=== PATIENT | female | born 1935 | race Caucasian/White ===

== ENCOUNTER 2025-01-11 08:05 | Inpatient (IN) | payer MEDICARE, MEDICAID ==
[~2025-01-11] VITALS: Ht 165.1 cm; Wt 72.7 kg
--- NOTE | 2025-01-11 08:31 | Physician Documentation ---
History of Present Illness Chief Complaint: Vomiting Stated Complaint: WEAKNESS Time Seen by MD: 08:14 HPI 89 years old female with history of coronary artery disease status post CABG 5 years ago, and pacemaker defibrillator in place brought by EMS due to generalized weakness, diarrhea. Patient reported diarrhea started about two days ago and it was loose watery and about 10 to 12 times a day not related to eating. Also reported generalized weakness and light-headedness, denied any fall or loss of consciousness, was able to take the medication today Patient reported also nausea vomiting couple of times which was bile content, abdominal pain started after vomiting which is in epigastric area and it is about 5/10. Denied any chest pain or shortness of breaths, coughing or palpitation. 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 Medication Reconciliation Allergies: Coded Allergies: No Known Allergies (Unverified , 01/11/25) Past Medical History Past Medical History: Arrhythmia, Coronary Artery Disease (Status post CABG five years ago) Smoking Status: Former smoker Alcohol Use: None Drug Use: none Lives with: Family Review of Systems ROS The history of present illness included a review of system, which yielded relevant positives and negatives Physical Exam Vital Signs: Temperature: 98.7, Source: Oral, Heart Rate: 120, Respiratory Rate: 16, BP: 108/68, Pulse Oximetry: 92, Weight: 72.700 Oxygen Flow Rate: 0 Physical Exam General: Awake and Alert, no acute distress. HEENT: Conjunctiva pink, Sclera clear, Mucus Membranes dry Neck: Supple without masses and tenderness. Resp: Lungs clear to auscultation bilaterally. Heart: Regular Rate and rhythm, tachycardic normal S1 and S2 Abdomen: Soft and non tender no organomegaly Extremities: No cyanosis,clubbing or edema. Skin: Warm and Dry. Neurological: Speech is clear, alert, and oriented x 4, no gross neurological deficits Progress Results/Orders Results/Orders Orders - LENNOX VEE RES Chest,Single View (01/11/25 08:16) Monitor (01/11/25 08:16) Saline Lock (01/11/25 08:16) Oxygen (01/11/25 08:16) Cbc/Diff (01/11/25 08:16) BMP (01/11/25 08:16) PBNP (01/11/25 08:16) Electrocardiogram (01/11/25 08:16) Hs Troponin I W Calculations (01/11/25 08:16) Hs Troponin I W Calculations (01/11/25 10:16) Hs Troponin I W Calculations (01/11/25 11:16) Vital Signs 01/11/25 08:07 Temp 98.7 Pulse 120 Resp 16 B/P (MAP) 108/68 Pulse Ox 92 O2 Flow Rate 0 EKG/XRAY/CT/US/VASC/MRI EKG : Additional Comment EKG: Sinus tachycardia rate 119, right axis deviation, no ST changes, QTC 472 Chest X-Ray : Additional Comments CHEST RADIOGRAPH Indication: CP Technique: Single frontal view of the chest was obtained COMPARISON: None FINDINGS: Lines and Tubes: Right chest AICD. Pacemaker leads overlie the left chest. Lungs: Mild pulmonary vascular congestion. Pleura: No effusion. No pneumothorax. Cardiomediastinal contours: Median sternotomy. Cardiomegaly. Vascular calcifications of the aorta. Bones: Unremarkable IMPRESSION: Mild pulmonary vascular congestion. Medical Decision Making Additional information obtaine: N/A Findings 89 years old female presented with generalized weakness, diarrhea and light-headedness, abdominal pain over last month, she reported 10 12 times watery diarrhea, no chest pain or shortness of breaths. Blood pressure is soft and patient has sinus tachycardia Differential diagnosis included not but not limited to a infectious gastroenteri tis, ischemic colitis, diverticulitis, pancreatitis, hydration Patient received 1 L fluid and p.o. metoprolol tartrate 25 mg, needs hospitalization for further monitoring due to JIE and dehydration Differential Dx:Considerations: Bowel obstruction, Diverticular disease, Gastritis/PUD, Ischemic bowel Departure Disposition: ADMITTED INPATIENT Admitted to Inpatient Unit: yes, to hospitalist Impression: Primary Impression: JIE (acute kidney injury) Additional Impressions: Diarrhea Acute exacerbation of congestive heart failure Condition: Guarded Referrals: NO PRIMARY CARE PROVIDER (PCP) Additional Comment Seen with PA/SHAPER OPERATOR This is an attending supervisory note for the resident of record. I have personally participated in care of this patient, has been present during critical and/or dee portions of the patient's service, participated in the evaluation, and provided major portion of medical decision-making, independently interpreted imaging and laboratory studies and participated in disposition of this patient. Date: Jan 11, 2025 Time: 12:23 in brief, this is a 89-year-old female who presented for evaluation of multiple episodes of diarrhea and episode of vomiting. The vomiting was followed by mild epigastric pain. The particular palliating or aggravating factors. Differential diagnosis considered includes acute appendicitis, acute cholecystitis, pancreatitis, gastritis, PUD, diverticulitis, mesenteric ischemia, abdominal aortic aneurysm, bowel obstruction, enteritis, colitis, fecal impaction, volvulus, IBS, inflammatory bowel disease, specific food intolerance, peritonitis, perforated viscous, malignancy, UTI, abscess, and abdominal pain NOS. Pelvic source of pain was also considered including endometritis, dysmenorrhea, ovarian cyst, ovarian torsion, PID, TOA, cervicitis, vaginitis, or uterine fibroid. History, physical exam, and workup exclude many of the more serious causes listed above. Hemodynamics reviewed. The patient is persistently tachycardic despite of fluid resuscitation. No evidence of true hypotension but blood pressure is very self despite of fluid resuscitation. Laboratory studies are unremarkable, there was no leukocytosis, no anemia, normal platelets. Chemistry notable for slight IJE. Troponins are negative and downtrending. BNP is elevated concerning for mild CHF. No prior values available. Chest x-ray was obtained showing mild pulmonary vascular congestion. Patient will require admission to Internal Medicine service for further evaluation and management of their disease process. The case was discussed by the resident of record with the admitting service and they were made aware of all the patient's active issues, including the above-mentioned history, physical exam findings, and the diagnostic results, as well as our concerns and s uspicions, as well as any possible incidental findings and pending test. They agreed with the admission plan to their service, and agreed to assume responsibility for the patient's ongoing care and management at that point in time. Patient was admitted in [] condition. Signature Scribe Signature: Lennox Vee Attestation: The resident MD attestation: I examined the patient and discussed the plan with attending physician Dr Kay Date: Jan 11, 2025 Time: 12:26 This note accurately reflects clinical decisions, work performed by myself, DO BARRETT Vieira ELAHE, RES Jan 11, 2025 08:31 MACK PRETTY DO Jan 11, 2025 12:26
[2025-01-11] MEDS ORDERED: dextrose 5% water 500ml 500 ML IV ONE (08:35)
[2025-01-11 08:38] LABS: MEAN PLATELET VOLUME 7.3 FL (7.4-10.4); RED CELL DISTRIBUTION WIDTH 13.6 % (11.5-14.5)
--- NOTE | 2025-01-11 08:48 | RADIOLOGY REPORT ---
CHEST RADIOGRAPH Indication: CP Technique: Single frontal view of the chest was obtained COMPARISON: None FINDINGS: Lines and Tubes: Right chest AICD. Pacemaker leads overlie the left chest. Lungs: Mild pulmonary vascular congestion. Pleura: No effusion. No pneumothorax. Cardiomediastinal contours: Median sternotomy. Cardiomegaly. Vascular calcifications of the aorta. Bones: Unremarkable IMPRESSION: Mild pulmonary vascular congestion.
--- NOTE | 2025-01-11 08:50 | ELECTROCARDIOGRAPH REPORT ---
[facility] Test Date: 2025-01-11 Test Time: 08:47:34 Pat Name: AMADOR MAYNARD Department: [facility] Patient ID: [id number] Room: [place] [address] Gender: F Demolition Specialist: : [id number] Requested By: LENNOX HYDE Order Number: [id number] Reading MD: Dr. Carmelo Roberts Measurements Intervals [place] Rate: 119 P: 81 HI: 175 QRS: -17 QRSD: 125 T: 217 QT: 335 QTc: 472 Interpretive Statements Sinus tachycardia Nonspecific intraventricular conduction delay Inferior infarct, recent Abnrm T, consider ischemia, anterolateral lds Baseline wander in lead(s) V2 Electronically Signed On 01-11-2025 20:42:[address] Carmelo Roberts Please click the below link to view image of tracing.
[2025-01-11 08:58] LABS: CREATININE 1.40 MG/DL (0.40-0.90); PRO BRAIN NATRIURETIC PEPTIDE 1495 PG/ML (0-450); TOTAL CARBON DIOXIDE 26.6 MMOL/L (24-32); eCRCL 25 ML/MIN; eGFR 35 ML/MIN
[2025-01-11] MEDS: normal saline 1000ml 1,000 ML IVB ONE (09:14)
[2025-01-11] MEDS: ondansetron/PF 4mg/2ml inj IV ONE (09:58)
[2025-01-11] MEDS: normal saline 500ml IV soln 500 ML IV ONE (12:25)
[2025-01-11] MEDS ORDERED: magnesium Cl slow-release 64mg tablet PO PRN (12:45)
[2025-01-11] MEDS ORDERED: potassium Cl 40MEQ/1/2NS 520ml 520 ML IV PRN (12:45)
[2025-01-11] MEDS ORDERED: ondansetron/PF 4mg/2ml inj IV PRN (12:45)
[2025-01-11] MEDS ORDERED: potassium Cl 20 mEq SR tablet PO PRN ×2 (12:45)
[2025-01-11] MEDS ORDERED: magnesium sulf-water 2g/50mL 50 ML IV PRN (12:45)
[2025-01-11] MEDS ORDERED: magnesium hydroxide 30ml (MOM) UD suspension PO PRN (12:45)
[2025-01-11] MEDS ORDERED: bisacodyl 10mg suppository rectal RC PRN (12:45)
[2025-01-11] MEDS ORDERED: magnesium sulf-water 4G/100mL 100 ML IV PRN (12:45)
[2025-01-11 13:42] LABS: C DIFF ANTIGEN POSITIVE (NEGATIVE); C DIFF SPECIMEN=DIARRHEA? ACCEPTABLE; C DIFFICILE TOXINS A&B POSITIVE (Neg)
[2025-01-11 13:43] LABS: OCCULT BLOOD STOOL NEGATIVE (Neg)
[2025-01-11] MEDS: vancomycin 125 MG/5 ML UD oral SOLN.RECON 5mL oral syringe (FIRVANQ) PO SCH (14:21)
[2025-01-11] MEDS: normal saline 1000ml 1,000 ML IV SCH (14:26)
[2025-01-11 16:11] VITALS: BP 106/69; PULSE 116; RESP 16; TEMP 96.9; O2SAT 97
[2025-01-11] MEDS ORDERED: MULT400T5 PO (17:15)
[2025-01-11] MEDS ORDERED: MECO10005 PO (17:16)
[2025-01-11] MEDS ORDERED: SACU1TAB PO (17:17)
[2025-01-11] MEDS ORDERED: METO-395 PO (17:19)
--- NOTE | 2025-01-11 17:19 | CARDIOLOGY REPORT ---
APPROVED REPORT EXAM: Comprehensive 2D, Doppler, and color-flow Echocardiogram. Patient Location: ER 3 Blood Pressure: 103/62 mmHg Heart Rate: 114 bpm Rhythm: SINUS TACHYCARDIA Indications CORONARY ARTERY DISEASE CAD, CABG X4 2019 MITRAL VALVE REPLACEMENT OF UNKNOWN SIZE AND TYPE 2019 PACEMAKER CARDIOMEMS Warhead Maintenance Specialist: Annamaria Cruz MD Previous echo: 10/29/23 CVC SCN (EF 25%, MVR well seated, mild AI, mild TR) 2D Dimensions RVDd 3.9 cm LVOT Diameter 2.02 (1.8-2.4cm) Ao Asc Diam. 3.33 cm CO 2.2 L/min M-Mode Dimensions Left Atrium(MM) 3.62 (2.5-4.0cm) IVSd 1.30 (0.7-1.1cm) LVDd 3.78 (4.0-5.6cm) Aortic Root 2.50 (2.2-3.7cm) PWd 1.18 (0.7-1.1cm) Aortic Cusp Exc 1.22 (1.5-2.0cm) IVSs 1.57 cm LVDs 2.83 (2.0-3.8cm) FS (%) 14 % PWs 1.60 cm ESV(Teich) 42.1 ml LVEF(%) 31 (>50%) Aortic Valve AoV Peak Ever. 119.7 cm/s AoV VTI 15.8 cm AO Peak GR. 5.7 mmHg AO Mean GR. 3 mmHg LVOT VTI 12.64 cm LVOT Peak Ever. 89.9 cm/s LOBO(VTI)/BSA 2.57 cm2/m2 LOBO (VTI) 2.57 cm2 AV DI 0.80 % Mitral Valve MV Peak Gr. 18 mmHg MV Mean Gr. 8 mmHg MV PHT 60 ms MVA (PHT) 3.67 cm2 MV VMax 214.1 cm/s MV VMean 137.6 cm/s MVA VTI 1.27 cm2 MV VTI 31.9 cm Tricuspid Valve TR P. Velocity 239 cm/s RAP ESTIMATE 10 mmHg TR Peak Gr. 23 mmHg RVSP 33 mmHg LEFT VENTRICLE Reduced LV size and severely reduced function. Mild concentric hypertrophy. LVEF is 30%. RIGHT VENTRICLE RV is moderately dilated with mildly reduced systolic function. RVSP is estimated at 33 mmHg. Pacemaker wire in right heart. ATRIA LA size appears normal. RA appears mildly dilated. AORTIC VALVE Trileaflet AV appears mildly sclerotic without stenosis. Mild insufficiency. MITRAL VALVE Mitral valve replacement of unknown size and type appears tipped toward the LV septum. Peak / mean gradients of 18 / 8 mmHg. No PVL or regurgitation visualized. TRICUSPID VALVE TV appears structurally normal with moderate regurgitation. PULMONIC VALVE Normal PV without stenosis, physiologic insufficiency. GREAT VESSELS Aortic root is normal in size. Ascending aorta is normal in size. PERICARDIUM Normal pericardium. No effusion. Conclusion Reduced LV size and severely reduced function. Mild concentric hypertrophy. LVEF is 30%. RV is moderately dilated with mildly reduced systolic function. RVSP is estimated at 33 mmHg. Pacemaker wire in right heart. LA size appears normal. RA appears mildly dilated. Trileaflet AV appears mildly sclerotic without stenosis. Mild insufficiency. Mitral valve replacement of unknown size and type appears tipped toward the LV septum. Peak / mean gradients of 18 / 8 mmHg. No PVL or regurgitation visualized. TV appears structurally normal with moderate regurgitation. Normal pericardium. No effusion.
[2025-01-11] MEDS ORDERED: EMPA10TA PO (17:21)
[2025-01-11] MEDS ORDERED: RIVA15TA PO (17:21)
[2025-01-11 18:00] VITALS: BP 105/69; PULSE 112; RESP 19; TEMP 98.9; O2SAT 96
[2025-01-11 20:00] VITALS: RESP 18; O2SAT 98
[2025-01-11] MEDS: K and/or MAG REPLACEMENT MC SCH (20:00)
[2025-01-11] MEDS: heparin, porcine 5000 units/ml vial SQ SCH (20:16)
--- NOTE | 2025-01-11 20:22 | HISTORY AND PHYSICAL ---
History & Physical Providers to CC ~ History of Present Illness Reason for Admit\Complaint: Generalized weakness diarrhea since one day History of Present Illness 89 years old female with history of coronary artery disease status post CABG 5 years ago, and pacemaker defibrillator in place brought by EMS due to generalized weakness, diarrhea.Patient reported diarrhea started about 1-2 days ago and it was loose watery and about 10 to 12 times a day not related to eating. Also reported generalized weakness and light-headedness, denied any fall or loss of consciousness. She took some of her medication today . Patient denied any nausea vomiting but having dry heaves and phlegm. No fever. Denied any abdominal pain to me . No recent med change. Feels generalized weakness. Passing yellow watery loose stools which I examined. Patient is taking cardiac meds, metoprolol Entresto Jardiance Xeralto and follows with Dr. Salazar in outpatient setting on regular basis. He goes to [facility]. Allergies: Coded Allergies: No Known Allergies (Unverified , 01/11/25) Home Medications Home Medications Active Reported Jardiance (Empagliflozin) 10 Mg Tablet 1 Tab PO DAILY 30 Days Xarelto (Rivaroxaban) 15 Mg Tab 1 Tab PO DAILY 30 Days Metoprolol Succinate 25 Mg Tab.sr.24h 1 Tab PO DAILY 30 Days Entresto 24 mg-26 mg Tablet (Sacubitril/Valsartan) 24 Mg-26 Mg Tablet 1 Tab PO Q12H 30 Days B12 Active (Mecobalamin) 1,000 Mcg Tab.chew 1 Tab PO DAILY 30 Days One Daily Multivitamin Tablet (Multivitamin with Folic Acid) 400 Mcg Tablet 1 Tab PO DAILY 30 Days Past Medical History Past Medical History Arrhythmia, Coronary Artery Disease (Status post CABG five years ago) Past Surgical History Surgical History Comment Status post CABG five years ago Past Social History Social History Comment Patient's [id number] lives with her who is her caregiver too. Patient is able to walk with walker usually. No use of any alcohol tobacco or any recreational drug ROS ROS Review of system as mentioned above in HPI rest of the review of system unremarkable Exam Vitals: Vital Signs Date Time Temp Pulse Resp B/P (MAP) Pulse Ox O2 Delivery O2 Flow Rate FiO2 01/11/25 16:11 96.9 116 16 106/69 (81) 97 Room Air 01/11/25 15:15 0 General: General-patient not in any acute distress, alert awake oriented, chronically ill-appearing, age-appropriate HEENT-atraumatic normocephalic, neck supple without elevated JVD, no thyromegaly or carotid bruit. No lymphadenopathy bilaterally. Eyes-no icterus or pallor seen in eyes Chest-clear to auscultation bilaterally, breathing nonlabored no tachypnea, no wheezing, no crepitation, no crackles. Heart-S1-S2 normal, regular heart rate no murmur Abdomen bowel sounds positive on auscultation, soft nondistended , signs of discomfort present over lower abdomen no guarding, no rigidity Skin no active skin rash Neurology-grossly intact, nonfocal alert awake oriented Extremity- no pedal edema able to move all 4 extremities Psychiatry - patient is not confused or agitated cooperated during physical examination Diagnostic Data Last Recorded Lab Results: 01/11/2582701/11/25827 Additional Plan 89 years old female with history of coronary artery disease status post CABG 5 years ago, and pacemaker defibrillator in place brought by EMS due to generalized weakness, diarrhea. Patient is admitted for generalized weakness C diff colitis, acute kidney injury, borderline blood pressure and tachycardia # C diff colitis-patient is started on p.o. vancomycin and IV fluids. Contact isolation ordered # Borderline blood pressure we will hold cardiac medications today. # acute kidney injury- started on IV fluids we will continue to monitor renal function # CAD, status post CABG 5 years ago, and pacemaker defibrillator Patient is on metoprolol Entresto Martinez Xeralto at home and follows with Dr. Cruz in outpatient setting on regular basis. We will continue to monitor patient's labs and vitals closely . Needs physical therapy evaluation before discharge . Code status discussed with the patient patient wishes DNR DNI. Time spent in discussing code status 16 minutes. We will do home medication reconciliation once updated in electronic by nursing staff or pharmacist. Further management depending on response to treatment . I will continue to follow patient in a.m. Date of Service: Jan 11, 2025 Billing Provider: LOREN PINON MD Common Visit Codes: [id number] INP/OBS CARE (HIGH) Secondary Visit Codes: 37979-PIPWOBEN CARE PLAN 30 MINUTES LOREN PINON MD Jan 11, 2025 20:22
[2025-01-11 22:00] VITALS: BP 92/60; PULSE 116; RESP 16; TEMP 97.5; O2SAT 98
[2025-01-12 03:55] LABS: MEAN PLATELET VOLUME 7.6 FL (7.4-10.4); RED CELL DISTRIBUTION WIDTH 13.0 % (11.5-14.5)
[2025-01-12 04:08] LABS: CREATININE 1.13 MG/DL (0.40-0.90); TOTAL CARBON DIOXIDE 24.9 MMOL/L (24-32); eCRCL 30 ML/MIN; eGFR 45 ML/MIN
[2025-01-12] MEDS: rivaroxaban 15mg tablet PO SCH (08:10)
[2025-01-12] MEDS: metoprolol succinate 25mg (24-HOUR) SR. Tablet PO SCH (08:10)
[2025-01-12 10:09] VITALS: BP 88/49; PULSE 117; RESP 14; TEMP 97.5; O2SAT 96
[2025-01-12 11:52] VITALS: BP 98/60
[2025-01-12 18:00] VITALS: BP 114/60; PULSE 115; RESP 16; TEMP 97.1; O2SAT 98
[2025-01-12 20:00] VITALS: RESP 18; O2SAT 98
--- NOTE | 2025-01-12 20:38 | PROGRESS NOTE ---
Daily Progress Note Providers to CC ~ Antibiotic Timeout Antibiotic Ordered?: Yes Subjective Patient was seen in presence of her iczkuuxe-fn-oen and nursing staff today. Clinically feeling better. She has not passed stools since last night. Improving renal function Objective Vital Signs Date Time Temp Pulse Resp B/P (MAP) Pulse Ox O2 Delivery O2 Flow Rate FiO2 01/12/25 18:30 86 01/12/25 11:52 98/60 (73) 01/12/25 10:09 97.5 14 96 Room Air 01/12/25 09:40 0.0 Result Diagram: 01/12/25 0326 01/12/25 0326 General-patient not in any acute distress, alert awake oriented, chronically ill-appearing, age-appropriate HEENT-atraumatic normocephalic, neck supple without elevated JVD, no thyromegaly or carotid bruit. No lymphadenopathy bilaterally. Eyes-no icterus or pallor seen in eyes Chest-clear to auscultation bilaterally, breathing nonlabored no tachypnea, no wheezing, no crepitation, no crackles. Heart-S1-S2 normal, regular heart rate no murmur Abdomen bowel sounds positive on auscultation, soft nondistended , signs of discomfort present over lower abdomen no guarding, no rigidity Skin no active skin rash Neurology-grossly intact, nonfocal alert awake oriented Extremity- no pedal edema able to move all 4 extremities Psychiatry - patient is not confused or agitated cooperated during physical examination Problem\Assessment\Plan 89 years old female with history of coronary artery disease status post CABG 5 years ago, and pacemaker defibrillator in place brought by EMS due to generalized weakness, diarrhea. Patient is admitted for generalized weakness C diff colitis, acute kidney injury, borderline blood pressure and tachycardia # C diff colitis-patient is started on p.o. vancomycin and IV fluids. Contact isolation ordered # Borderline blood pressure we will hold cardiac medications for now. # acute kidney injury- started on IV fluids we will continue to monitor renal function # CAD, status post CABG 5 years ago, and pacemaker defibrillator Patient is on metoprolol Entresto Jardiance Xeralto at home and follows with Dr. Cruz in outpatient setting on regular basis. # Code status discussed with the patient patient wishes DNR DNI. We will continue to monitor patient's labs and vitals closely . Needs physical therapy evaluation before discharge . home medication reconciliation updated in electronic records Further management depending on response to treatment . I will continue to follow patient in a.m. Date of Service: Jan 12, 2025 Billing Provider: LOREN PINON MD Common Visit Codes: [id number] INP/OBS CARE(HIGH) LOREN PNION MD Jan 12, 2025 20:38
[2025-01-12 22:00] VITALS: BP 102/54; PULSE 116; RESP 16; TEMP 98; O2SAT 99
[2025-01-13 05:16] LABS: MEAN PLATELET VOLUME 7.6 FL (7.4-10.4); RED CELL DISTRIBUTION WIDTH 13.5 % (11.5-14.5)
[2025-01-13 05:29] LABS: CREATININE 1.04 MG/DL (0.40-0.90); TOTAL CARBON DIOXIDE 23.8 MMOL/L (24-32); eCRCL 33 ML/MIN; eGFR 50 ML/MIN
[2025-01-13 06:00] VITALS: BP 95/59; PULSE 114; RESP 21; TEMP 98.5; O2SAT 98
[2025-01-13 08:12] VITALS: BP 115/68; PULSE 118; O2SAT 98
[2025-01-13 10:00] VITALS: BP 104/66; PULSE 98; RESP 18; TEMP 97.9; O2SAT 98
--- NOTE | 2025-01-13 13:48 | RADIOLOGY REPORT ---
CHEST RADIOGRAPH Indication: LUNG CRACKLES Technique: Single frontal view of the chest was obtained Comparison: DI CHEST,SINGLE VIEW on DOS: 01/11/25 FINDINGS: Lines and Tubes: Right-sided pacemaker. Left-sided pacemaker leads are identified. Lungs: No focal consolidation. Pleura: No effusion. No pneumothorax. Cardiomediastinal contours: Unremarkable Bones: Median sternotomy IMPRESSION: No acute cardiopulmonary disease.
[2025-01-13 18:00] VITALS: BP 111/67; PULSE 80; RESP 16; TEMP 97; O2SAT 98
--- NOTE | 2025-01-13 19:19 | PROGRESS NOTE ---
Daily Progress Note Providers to CC ~ Antibiotic Timeout Antibiotic Ordered?: Yes Subjective Patient was seen in presence of her caregiver her kgdlchgn-ym-pbh today. Dry cough noticed stopped fluids one dose of IV Lasix ordered x-ray chest reviewed . Patient needs physical therapy evaluation. All questions and concerns addressed in visit. No loose stools since last night Objective Vital Signs Date Time Temp Pulse Resp B/P (MAP) Pulse Ox O2 Delivery O2 Flow Rate FiO2 01/13/25 13:39 100 01/13/25 10:00 97.9 18 104/66 (79) 98 Room Air 01/13/25 08:00 0.0 Result Diagram: 01/13/250 01/13/25 0400 General-patient not in any acute distress, alert awake oriented, chronically ill-appearing, age-appropriate HEENT-atraumatic normocephalic, neck supple without elevated JVD, no thyromegaly or carotid bruit. No lymphadenopathy bilaterally. Eyes-no icterus or pallor seen in eyes Chest-coarse breath sounds to auscultation bilaterally, breathing nonlabored no tachypnea, mild lung crackles Heart-S1-S2 normal, regular heart rate no murmur Abdomen bowel sounds positive on auscultation, soft nondistended , no signs of discomfort present over lower abdomen no guarding, no rigidity Skin no active skin rash Neurology-grossly intact, nonfocal alert awake oriented Extremity- no pedal edema able to move all 4 extremities Psychiatry - patient is not confused or agitated cooperated during physical examination Problem\Assessment\Plan 89 years old female with history of coronary artery disease status post CABG 5 years ago, and pacemaker defibrillator in place brought by EMS due to generalized weakness, diarrhea. Patient is admitted for generalized weakness C diff colitis, acute kidney injury, borderline blood pressure and tachycardia # C diff colitis-patient is started on p.o. vancomycin , stopped IV fluids. Contact isolation to continue # Borderline blood pressure we will hold cardiac medications for now. # acute kidney injury- started on IV fluids we will continue to monitor renal function # CAD, status post CABG 5 years ago, and pacemaker defibrillator Patient is on metoprolol Entresto Jardiance Xeralto at home and follows with Dr. Cruz in outpatient setting on regular basis. Started metoprolol and Jardiance today. Blood pressure still soft we will hold Entresto # Code status discussed with the patient patient wishes DNR DNI. We will continue to monitor patient's labs and vitals closely . Needs physical therapy evaluation in [place] . . home medication reconciliation updated in electronic records Further management depending on response to treatment . I will continue to follow patient in a.m. possible discharge in a.m. if clinically stable Date of Service: Jan 13, 2025 Billing Provider: LOREN PINON MD Common Visit Codes: [id number] INP/OBS CARE(HIGH) LOREN PINON MD Jan 13, 2025 19:19
[2025-01-13 20:00] VITALS: RESP 22; O2SAT 98
[2025-01-14 06:26] LABS: MEAN PLATELET VOLUME 7.7 FL (7.4-10.4); RED CELL DISTRIBUTION WIDTH 13.2 % (11.5-14.5)
[2025-01-14 06:30] VITALS: BP 118/68; PULSE 99; RESP 20; TEMP 98.1; O2SAT 95
[2025-01-14 06:46] LABS: CREATININE 1.02 MG/DL (0.40-0.90); TOTAL CARBON DIOXIDE 25.9 MMOL/L (24-32); eCRCL 34 ML/MIN; eGFR 51 ML/MIN
[2025-01-14 10:06] VITALS: BP 103/58; PULSE 94; RESP 16; TEMP 97.8; O2SAT 98
[2025-01-14 15:25] VITALS: BP_SYST 120; PULSE 120
[2025-01-14] MEDS: metoprolol tartrate 1mg/ml inj IV ONE (15:25)
[2025-01-14] MEDS ORDERED: VANC125C19 PO (16:27)
--- NOTE | 2025-01-14 21:56 | DISCHARGE SUMMARY ---
Discharge Summary Providers to CC ~ Discharge Summary Admission Diagnosis: JIE , hypotension , diarrhea, CAD , generalized weakness , CHF h/o Hospital Course DATE OF ADMISSION: January 11, 2025 DATE OF DISCHARGE:January 14, 2025 CBC testing done on January 14, 2025 WBC 5.3 hemoglobin 10.8 hematocrit 30.9 platelet count 167. Serology for COVID positive. Stool occult blood negative. Serum chemistry done on January 14, 2025 sodium 138 potassium 4.2 creatinine 1.02 GFR 51 normal liver enzymes. ProBNP 1495, lipase 20, blood culture showed no growth after three daysW RIGHTS STAIN FOR STOOL WBCS Final FEW WBCS SEEN CULT STOOL (ENTERIC PATH) Final NO ENTERIC PATHOGENS ISOLATED. (Negative for Salmonella,Shigella,Campylobacter,Vibrio Ecoli 0157-H7,Yersinia and Aeromonas) CHEST,SINGLE VIEWIMPRESSION: No acute cardiopulmonary disease. ECHOCARDIOGRAMConclusion Reduced LV size and severely reduced function. Mild concentric hypertrophy. LVEF is 30%. RV is moderately dilated with mildly reduced systolic function. RVSP is estimated at 33 mmHg. Pacemaker wire in right heart. LA size appears normal. RA appears mildly dilated. Trileaflet AV appears mildly sclerotic without stenosis. Mild insufficiency. Mitral valve replacement of unknown size and type appears tipped toward the LV septum. Peak / mean gradients of 18 / 8 mmHg. No PVL or regurgitation visualized. TV appears structurally normal with moderate regurgitation. Normal pericardium. No effusion. Discharge Diagnosis\Comment: # acute C diff colitis # Borderline blood pressure # acute kidney injury # CAD, status post CABG 5 years ago, and pacemaker defibrillator # acute on chronic systolic CHF exacerbation Operations\Procedures: None Consultants: None Complications: None Condition on DC: Stable New Medications: Vancomycin Hcl (Vancomycin Hcl) 125 Mg Capsule 1 CAP PO Q6H for 7 Days, #28 CAP Continued Medications: Empagliflozin (Jardiance) 10 Mg Tablet 1 TAB PO DAILY for 30 Days, #30 TAB 0 Refills Mecobalamin (B12 Active) 1,000 Mcg Tab.chew 1 TAB PO DAILY for 30 Days, #30 TAB 0 Refills Metoprolol Succinate (Metoprolol Succinate) 25 Mg Tab.sr.24h 1 TAB PO DAILY for 30 Days, #30 TAB 0 Refills Multivitamin with Folic Acid (One Daily Multivitamin Tablet) 400 Mcg Tablet 1 TAB PO DAILY for 30 Days, #30 TAB 0 Refills Rivaroxaban (Xarelto) 15 Mg Tab 1 TAB PO DAILY for 30 Days, #30 TAB 0 Refills Sacubitril/Valsartan (Entresto 24 mg-26 mg Tablet) 24 Mg-26 Mg Tablet 1 TAB PO Q12H for 30 Days, #60 TAB 0 Refills Discharge Summary: 89 years old female with history of coronary artery disease status post CABG 5 years ago, and pacemaker defibrillator in place brought by EMS due to generalized weakness, diarrhea. Patient is admitted for generalized weakness C diff colitis, acute kidney injury, borderline blood pressure and tachycardia # C diff colitis-patient is started on p.o. vancomycin , stopped IV fluids. Contact isolation to continue # Borderline blood pressure we held cardiac medications for now. # acute kidney injury- started on IV fluids we will continue to monitor renal function # CAD, status post CABG 5 years ago, and pacemaker defibrillator Patient is on metoprolol Entresto Jardiance Xeralto at home and follows with Dr. Cruz in outpatient setting on regular basis. Started losartan ,metoprolol and Jardiance restarted Entresto # Code status discussed with the patient patient wishes DNR DNI. Patient is feeling better she has been afebrile and getting discharged home in stable condition. Patient is seen and examined on the day of discharge. All labs, diagnostic workup and discharge plan discussed with patient and family members in detail before her discharge. All questions and queries answered to the best of my professional medical knowledge. I heard patient's concerns and address appropriately. Patient was cleared by Physical therapy team for home discharge . manager mba involved in patient's discharge plan. Discharge instructions provided to the patient. Please follow-up with primary care physician after hospital discharge in 1-2 weeks. Continue to monitor blood pressure and heart rate at home daily. If blood pressure less than 90 /60mmhg and heart rate less than 50 to contact mobile security specialist and discuss all cardiology medication with them. take oral fluid at least 1000 mL per day. Take vancomycin PO till January 20, 2025 along with contact isolation. Activity as tolerated General-patient not in any acute distress, alert awake oriented, chronically ill-appearing, age-appropriate HEENT-atraumatic normocephalic, neck supple without elevated JVD, no thyromegaly or carotid bruit. No lymphadenopathy bilaterally. Eyes-no icterus or pallor seen in eyes Chest-coarse breath sounds to auscultation bilaterally, breathing nonlabored no tachypnea, mild lung crackles Heart-S1-S2 normal, regular heart rate no murmur Abdomen bowel sounds positive on auscultation, soft nondistended , no signs of discomfort present over lower abdomen no guarding, no rigidity Skin no active skin rash Neurology-grossly intact, nonfocal alert awake oriented Extremity- no pedal edema able to move all 4 extremities Psychiatry - patient is not confused or agitated cooperated during physical examination *Problems/Diagnosis: (1) Acute exacerbation of congestive heart failure Status: Acute (2) JIE (acute kidney injury) Status: Acute (3) C. difficile colitis Total Time Spent on D/C: > 30 Minutes Date of Service: Jan 14, 2025 Billing Provider: LOREN PINON MD Common Visit Codes: 07012-IJO/OBS DISCH DAY >30min LOREN PINON MD Jan 14, 2025 21:51
== END 2025-01-14 18:00 | disposition home or self-care (01) | DRG 371 ==
LOC: ER 08:06 → UNDOADMIN 12:05 → ED HOLD 12:05 → SUR 3N 15:57
PROVIDERS: ADMIT Internal Medicine; ATTEND Internal Medicine
DX: A04.72 Enterocolitis due to Clostridium difficile, not specified as recurrent (principal); I50.23 Acute on chronic systolic (congestive) heart failure; N17.0 Acute kidney failure with tubular necrosis; Z66 Do not resuscitate; I25.10 Atherosclerotic heart disease of native coronary artery without angina pectoris; Z87.891 Personal history of nicotine dependence; Z95.1 Presence of aortocoronary bypass graft; Z95.810 Presence of automatic (implantable) cardiac defibrillator; Z79.01 Long term (current) use of anticoagulants; Z79.899 Other long term (current) drug therapy
CPT/HCPCS: 36415; 71045; 80048; 80053; 82272; 83605; 83690; 83735; 83880; 84484; 85025; 87040; 87045; 87046; 87081; 87324; 87449; 89055; 93005; 93306; 99285; A4615; G0378; J1644; J1938; J2405; J2470; J3490; J7030; J7040; J7042